=== PATIENT | female | born 1980 | race American Indian/Alaskan Native ===

== ENCOUNTER 2020-05-29 12:12 | Emergency (ER) | payer BC ==
--- NOTE | 2020-05-29 13:04 | ED Physician Documentation ---
PD HPI LOWER EXT INJURY - Stated complaint Stated Complaint: RIGHT ANKLE PAIN - Chief complaint Chief Complaint: Ext Problem - History obtained from History obtained from: Patient - History of Present Illness PD HPI LOW EXT INJURY LOCATION: Right, Ankle Type of injury: Twist Where injury occurred: Home Timing - onset: How many weeks ago (3) Timing - duration: Weeks (3) Timing - details: Abrupt onset (injury 3 weeks ago and seen at another facility, she states Dx with fracture and treated with wrap/aircast type brace. She states still hurting and is worse the past few days. No swelling. Denies new injury per se.) Improved by: Rest Worsened by: Moving, Other (walking) Associated symptoms: Swelling. No: Weakness, Numbness Similar symptoms before: Diagnosis (Dx with "ankle fracture" 3 weeks ago [place].) Recently seen: Emergency Dept (3 weeks ago) Review of Systems Constitutional: denies: Fever, Chills Nose: denies: Rhinorrhea / runny nose, Congestion Throat: denies: Sore throat Respiratory: denies: Cough Skin: denies: Rash, Lesions Neurologic: denies: Focal weakness, Numbness PD PAST MEDICAL HISTORY - Past Medical History Cardiovascular: None Respiratory: None Neuro: None Endocrine/Autoimmune: None - Present Medications Home Medications: Ambulatory Orders Medication Instructions Recorded Confirmed Hydrocodone/Acetaminophen 1 each PO Q6H PRN #15 tablet 05/29/20 [Hydrocodone-Acetamin 5-325 mg] Naproxen 500 mg PO BID #20 tablet 05/29/20 - Allergies Allergies/Adverse Reactions: Allergies Allergy/AdvReac Type Severity Reaction Status Date / Time duloxetine [From Cymbalta] Allergy Anaphylaxis Verified 05/29/20 12:20 Penicillins Allergy Anaphylaxis Verified 05/29/20 12:20 PD ED PE NORMAL - Vitals Vital signs reviewed: Yes - General General: Alert and oriented X 3, No acute distress, Well developed/nourished - Derm Derm: Normal color, Warm and dry, No rash - Extremities Extremities: Other (right ankle tender at distal lateral ankle and at back of heel area. Not tender in Achilles per se. Foot and toes not tender. No effusion. Inversion causes some pain. Passive dorsiflexion without pain. ) - Neuro Neuro: Alert and oriented X 3, No motor deficit, No sensory deficit, Normal speech Results - Vitals Vitals: Vital Signs - 24 hr 09/19/20 09/19/20 12:20 14:29 Temperature 36.6 C 36.8 C Heart Rate 105 H 80 Respiratory 16 17 Rate Blood Pressure 122/75 179/84 H O2 Saturation 97 100 Oxygen O2 Source Room air - Rads (name of study) right ankle Radiology: Prelim report reviewed (no fractures), See rad report PD MEDICAL DECISION MAKING - ED course Complexity details: reviewed old records (no JARED on chart), reviewed results, considered differential, d/w patient Departure - Departure Disposition: 01 Home, Self Care Clinical Impression: Ankle sprain Qualifiers: Encounter type: initial encounter Involved ligament of ankle: unspecified ligament Laterality: right Qualified Code(s): S93.401A - Sprain of unspecified ligament of right ankle, initial encounter Condition: Stable Record reviewed to determine appropriate education?: Yes Instructions: ED Sprain Ankle W X Ray Follow-Up: ALONDRA STAUFFER ARNP [Primary Care Provider] - Prescriptions: Hydrocodone/Acetaminophen [Hydrocodone-Acetamin 5-325 mg] 1 each PO Q6H PRN #15 tablet PRN Reason: Pain Naproxen 500 mg PO BID #20 tablet Comments: The walking boot when up and around for the next couple of weeks for healing. Elevate ice and rest your ankle often for the swelling the next day or 2. Anti- inflammatory such as naproxen twice daily for 7 to 10 days. Add Tylenol or hydrocodone in the short-term as needed for pain. Use your crutches as needed for partial to no weightbearing and progress weightbearing and activity as tolerated. Recheck if not improving well over the next week or so. Discharge Date/Time: 05/29/20 14:42
--- NOTE | 2020-05-29 14:03 | XRAY Report ---
PROCEDURE: Ankle 3 View RT INDICATIONS: ankle inj TECHNIQUE: 3 views of the ankle were acquired. COMPARISON: None FINDINGS: Bones: No fractures or dislocations. Ankle mortise is normally aligned. No suspicious bony lesions . The talar dome demonstrates an unremarkable appearance. Plantar and Achilles calcaneal spurs are seen. An accessory ossicle is seen on the lateral view, which is attributed to an os peroneum. Soft tissues: Soft tissue swelling is seen medially. IMPRESSION: Soft tissue swelling is seen. No findings of fracture are seen. However, if there is point tenderness (or other clinical concern fo r a fracture not seen on these plain films) then please consider a short-term follow-up plain film se marissa or CT for further evaluation. Reviewed by: Frederick Encarnacion MD on 05/29/2020 1:02 PM [facility] Approved by: Frederick Encarnacion MD on 05/29/2020 1:02 PM [facility] Station ID: [id number]
[2020-05-29] MEDS ORDERED: HYDROcod/ACETAM 5/325 MG TABLET PO STA (14:13)
[2020-05-29] MEDS ORDERED: NAPROXEN 250 MG TABLET PO STA (14:13)
[2020-05-29 14:29] VITALS: BP 179/84
== END 2020-05-29 14:42 | disposition home or self-care (01) ==
LOC: ED 12:12
DX: S93.401A Sprain of unspecified ligament of right ankle, initial encounter (principal); X50.1XXA Overexertion from prolonged static or awkward postures, initial encounter; Y92.009 Unspecified place in unspecified non-institutional (private) residence as the place of occurrence of the external cause; M77.31 Calcaneal spur, right foot
CPT/HCPCS: 73610; 99283; A9270